=== PATIENT | female | born 2000 | race Hispanic/Latino ===

== ENCOUNTER → 2019-05-08 | Outpatient (CLI) | payer OTHER ==
[2019-05-10 08:18] LABS: HEPATITIS A ANTIBODY IGM Negative (Negative); HEPATITIS B CORE IGM Negative (Negative); HEPATITIS Bs ANTIGEN SCREEN P Negative (Negative)
== END | disposition home or self-care (01) ==
LOC: EDH 18:20
PROVIDERS: ATTEND Family Medicine
DX: T14.90XA Injury, unspecified, initial encounter (principal); W46.1XXA Contact with contaminated hypodermic needle, initial encounter; Y93.89 Activity, other specified; Y92.89 Other specified places as the place of occurrence of the external cause; Y99.8 Other external cause status
CPT/HCPCS: 36415; 80074; 86701; 87390

== ENCOUNTER → 2019-11-01 | Outpatient (CLI) | payer OTHER ==
[2019-11-01 12:37] LABS: BASOPHILS % (AUTO) 0.3 % (0.0-5.0); EOSINOPHILS % (AUTO) 0.2 % (0.0-8.0); HEMATOCRIT 41.8 % (36-48); LYMPHOCYTES % (AUTO) 11.3 % (21.0-51.0); MEAN CORPUSCULAR HEMOGLOBIN 27.6 pg (27.0-33.0); MEAN CORPUSCULAR HGB CONC 32.1 g/dL (32.0-36.0); MONOCYTES % (AUTO) 2.1 % (3.0-13.0); NEUTROPHILS % (AUTO) 85.6 % (40.0-77.0); PLATELET COUNT (AUTO) 298 K/uL (130-400); RED BLOOD CELL COUNT(AUTO) 4.86 MIL/uL (4.00-5.50); RED CELL DISTRIBUTION WIDTH 13.2 % (11.0-15.5); WHITE BLOOD COUNT (AUTO) 11.4 K/uL (4.8-10.8)
[2019-11-01 12:52] LABS: POTASSIUM 3.8 mmol/L (3.5-5.1)
[2019-11-01 13:06] LABS: ALBUMIN 3.2 g/dL (3.5-5.0); BILIRUBIN,TOTAL 0.3 mg/dL (0.2-1.0); CREATININE 0.9 mg/dL (0.5-1.5); T4 (THYROXINE) 12.1 ug/dL (4.7-13.3); THYROID STIMULATING HORMONE 1.47 uIU/mL (0.36-3.74); TOTAL PROTEIN, SERUM 7.2 g/dL (6.0-8.3)
== END | disposition home or self-care (01) ==
LOC: LAB 12:07
PROVIDERS: ATTEND Allergy & Immunology
DX: T78.2XXA Anaphylactic shock, unspecified, initial encounter (principal); L20.9 Atopic dermatitis, unspecified; L27.2 Dermatitis due to ingested food
CPT/HCPCS: 36415; 80053; 82785; 84436; 84443; 85025; 86038; 86215; 86235; 86376; 86800

== ENCOUNTER → 2022-10-31 | Outpatient (CLI) | payer OTHER ==
[2022-10-31 13:59] LABS: BASOPHILS % (AUTO) 0.5 % (0.0-5.0); EOSINOPHILS % (AUTO) 1.2 % (0.0-8.0); LYMPHOCYTES % (AUTO) 22.8 % (21.0-51.0); MEAN CORPUSCULAR HEMOGLOBIN 27.8 pg (27.0-33.0); MEAN CORPUSCULAR HGB CONC 32.8 g/dL (32.0-36.0); MEAN CORPUSCULAR VOLUME 84.8 fL (79-99); MONOCYTES % (AUTO) 5.3 % (3.0-13.0); NEUTROPHILS % (AUTO) 69.9 % (40.0-77.0); PLATELET COUNT (AUTO) 255 K/uL (130-400); RED BLOOD CELL COUNT(AUTO) 5.07 MIL/uL (4.00-5.50); WHITE BLOOD COUNT (AUTO) 11.1 K/uL (4.8-10.8)
[2022-10-31 14:39] LABS: % IRON SATURATION 29.7 % (22-44); IRON, SERUM 132 mcg/dL (50-170); TOTAL IRON BINDING CAPACITY 443 mcg/dL (250-450)
[2022-10-31 14:43] LABS: ALANINE AMINOTRANSFERASE 20 U/L (12-78); ALBUMIN 3.4 g/dL (3.5-5.0); ASPARTATE AMINOTRANSFERASE 20 U/L (10-37); CARBON DIOXIDE 26 mmol/L (21-32); CHLORIDE 100 mmol/L (101-111); CHOLESTEROL 185 mg/dL (<200); CREATININE 0.7 mg/dL (0.5-1.5); GLOMERULAR FILTR. RATE CALC 109 mL/min (>60); GLUCOSE,RANDOM 85 mg/dL (70-105); HDL CHOLESTEROL 89 mg/dL (35-85); LDL DIRECT 85 mg/dL (0-99); POTASSIUM 4.2 mmol/L (3.5-5.1); SODIUM SERUM 137 mmol/L (136-145); THYROID STIMULATING HORMONE 2.48 uIU/mL (0.36-3.74); TOTAL PROTEIN, SERUM 7.9 g/dL (6.0-8.3); TRIGLYCERIDES 77 mg/dL (30-200); UREA NITROGEN, BLOOD 10 mg/dL (7-18)
== END | disposition home or self-care (01) ==
LOC: LAB 13:43
PROVIDERS: ATTEND Internal Medicine
DX: Z13.220 Encounter for screening for lipoid disorders (principal); Z13.29 Encounter for screening for other suspected endocrine disorder; E04.9 Nontoxic goiter, unspecified; F43.9 Reaction to severe stress, unspecified; N92.6 Irregular menstruation, unspecified
CPT/HCPCS: 36415; 80053; 80061; 82607; 82728; 82746; 84443; 85025